=== PATIENT | male | born 1970 | race Caucasian/White ===

== ENCOUNTER 2019-09-18 21:05 | Inpatient (IN) | payer MEDICAID ==
[~2019-09-18] VITALS: Ht 165.1 cm; Wt 90.7 kg
[2019-09-18 22:09] LABS: BASOPHIL % 0.1 % (0-2); PLATELET COUNT 246 x10^3mcL (130-400); RED CELL DISTRIBUTION WIDTH 12.4 % (11.5-14.5)
[2019-09-18 22:22] LABS: CALCIUM 8.7 mg/dL (8.5-10.1); CARBON DIOXIDE 24.6 mmol/L (21-32); CHLORIDE SERUM 99 mmol/L (98-107); CREATININE SERUM 0.9 mg/dL (0.7-1.3); GFR1 > 60 mL/min; GLUCOSE SERUM 131 mg/dL (74-106); POTASSIUM SERUM 3.3 mmol/L (3.5-5.1); SODIUM SERUM 136 mmol/L (136-145)
[2019-09-18 22:26] LABS: ALBUMIN 3.4 g/dL (3.4-5.0); ALKALINE PHOSPHATASE 71 U/L (46-116); ALT/SGPT 42 U/L (16-63); AST/SGOT 31 U/L (15-37); BILIRUBIN TOTAL 0.5 mg/dL (0.20-1.00); TOTAL PROTEIN, SERUM 7.8 g/dL (6.4-8.2)
[2019-09-18 22:47] LABS: microscopic required? YES; urine erythrocyte TRACE (NEGATIVE)
[2019-09-18 23:48] LABS: CHOLESTEROL/HDL RATIO 2.3
[2019-09-18 23:49] LABS: FREE T4 1.16 ng/dL (0.76-1.46); FREE THYROXINE INDEX 2.7 ug/dL (1.4-4.5); T4(THYROXINE) 7.2 ug/dL (4.7-13.3)
[2019-09-19 00:11] LABS: T3 TOTAL 0.92 ng/mL
[2019-09-19 00:19] LABS: C REACTIVE PROTEIN 23.2 mg/dL (<=0.9)
[2019-09-19 01:34] VITALS: BP 130/85
[2019-09-19 05:24] VITALS: BP 130/84
[2019-09-19 06:55] LABS: BASOPHIL % 0.1 % (0-2); PLATELET COUNT 255 x10^3mcL (130-400); RED CELL DISTRIBUTION WIDTH 12.3 % (11.5-14.5)
[2019-09-19 07:07] LABS: CALCIUM 8.9 mg/dL (8.5-10.1); CARBON DIOXIDE 27.2 mmol/L (21-32); CHLORIDE SERUM 103 mmol/L (98-107); CREATININE SERUM 0.9 mg/dL (0.7-1.3); GFR1 > 60 mL/min; GLUCOSE SERUM 128 mg/dL (74-106); PHOSPHOROUS 1.5 mg/dL (2.5-4.9); POTASSIUM SERUM 4.1 mmol/L (3.5-5.1); SODIUM SERUM 142 mmol/L (136-145)
[2019-09-19 08:45] VITALS: BP 134/76
[2019-09-19 12:55] VITALS: BP 130/75
[2019-09-19] MEDS ORDERED: CARBAMAZEPINE200 M3 PO (16:44)
[2019-09-19 17:51] VITALS: BP 130/72
[2019-09-19 20:15] VITALS: BP 147/86
[2019-09-20 04:37] VITALS: BP 136/85
[2019-09-20 07:20] LABS: PLATELET COUNT 271 x10^3mcL (130-400); RED CELL DISTRIBUTION WIDTH 12.4 % (11.5-14.5)
[2019-09-20 07:30] LABS: BASOPHIL % 0 % (0-2)
[2019-09-20 07:51] LABS: CALCIUM 9.2 mg/dL (8.5-10.1); CARBON DIOXIDE 29.6 mmol/L (21-32); CHLORIDE SERUM 101 mmol/L (98-107); CREATININE SERUM 0.8 mg/dL (0.7-1.3); GFR1 > 60 mL/min; GLUCOSE SERUM 120 mg/dL (74-106); MAGNESIUM 2.1 mg/dL (1.8-2.4); PHOSPHOROUS 3.2 mg/dL (2.5-4.9); POTASSIUM SERUM 3.8 mmol/L (3.5-5.1); SODIUM SERUM 141 mmol/L (136-145)
[2019-09-20 08:42] VITALS: BP 134/89
[2019-09-20 12:16] VITALS: BP 137/84
[2019-09-20 16:10] VITALS: BP 133/87
[2019-09-20 20:40] VITALS: BP 134/84
[2019-09-21 06:04] VITALS: BP 131/87
[2019-09-21 06:29] LABS: BASOPHIL % 0.2 % (0-2); PLATELET COUNT 344 x10^3mcL (130-400); RED CELL DISTRIBUTION WIDTH 12.6 % (11.5-14.5)
[2019-09-21 06:56] LABS: ALKALINE PHOSPHATASE 66 U/L (46-116); ALT/SGPT 51 U/L (16-63); AST/SGOT 34 U/L (15-37); BILIRUBIN TOTAL 0.45 mg/dL (0.20-1.00); CALCIUM 9.5 mg/dL (8.5-10.1); CARBON DIOXIDE 27.6 mmol/L (21-32); CHLORIDE SERUM 100 mmol/L (98-107); CREATININE SERUM 0.8 mg/dL (0.7-1.3); GFR1 > 60 mL/min; GLUCOSE SERUM 113 mg/dL (74-106); PHOSPHOROUS 3.5 mg/dL (2.5-4.9); POTASSIUM SERUM 4.1 mmol/L (3.5-5.1); SODIUM SERUM 137 mmol/L (136-145)
[2019-09-21 06:57] LABS: ALBUMIN 3.2 g/dL (3.4-5.0)
[2019-09-21 09:30] VITALS: BP 122/84
[2019-09-21 12:49] VITALS: Ht 165.1 cm; Wt 90.7 kg
[2019-09-21 17:00] VITALS: BP 131/91
[2019-09-21 21:30] VITALS: BP 137/72
[2019-09-22 06:21] LABS: BASOPHIL % 0.3 % (0-2); PLATELET COUNT 360 x10^3mcL (130-400); RED CELL DISTRIBUTION WIDTH 12.6 % (11.5-14.5)
[2019-09-22 07:57] LABS: ALKALINE PHOSPHATASE 61 U/L (46-116); ALT/SGPT 64 U/L (16-63); AST/SGOT 42 U/L (15-37); BILIRUBIN TOTAL 0.3 mg/dL (0.20-1.00); CALCIUM 9.2 mg/dL (8.5-10.1); CARBON DIOXIDE 26.9 mmol/L (21-32); CHLORIDE SERUM 101 mmol/L (98-107); CREATININE SERUM 0.8 mg/dL (0.7-1.3); GFR1 > 60 mL/min; GLUCOSE SERUM 109 mg/dL (74-106); MAGNESIUM 2.2 mg/dL (1.8-2.4); PHOSPHOROUS 3.3 mg/dL (2.5-4.9); POTASSIUM SERUM 4.3 mmol/L (3.5-5.1); SODIUM SERUM 139 mmol/L (136-145); TOTAL PROTEIN, SERUM 7.2 g/dL (6.4-8.2)
[2019-09-22 07:59] LABS: ALBUMIN 2.9 g/dL (3.4-5.0)
[2019-09-22 09:30] VITALS: BP 127/89
[2019-09-22] MEDS ORDERED: PLAQUENIL200 MG PO (12:30)
[2019-09-22] MEDS ORDERED: ZITHROMAX500 MG PO (12:31)
[2019-09-22] MEDS ORDERED: TESSALON PERLE100 MG PO (12:31)
[2019-09-22 13:29] VITALS: BP 122/72
[2019-09-22 13:41] VITALS: BP 122/72
== END 2019-09-22 15:07 | disposition home or self-care (01) | DRG 137 ==
LOC: EDBD 21:05 → ED 21:05 → DU 23:02
PROVIDERS: Emergency Medicine; Internal Medicine; ADMIT Internal Medicine
DX: U07.1 COVID-19 (principal); J96.01 Acute respiratory failure with hypoxia; E87.6 Hypokalemia; E83.39 Other disorders of phosphorus metabolism; Z90.49 Acquired absence of other specified parts of digestive tract; Z68.35 Body mass index [BMI] 35.0-35.9, adult
CPT/HCPCS: 82962; 83880; 84439; 85378; 87804; G0378; J0456; J0696; J1885; J3535; J7040; J7050; Q0092; U0002